=== PATIENT | female | born 1950 ===

== ENCOUNTER 2019-09-18 21:48 | Inpatient (IN) | payer MEDICARE, MEDICAID ==
[2019-09-19] MEDS ORDERED: Magnesium Hydroxide (MOM) 30 mL UDC PO PRN (01:06)
[2019-09-19] MEDS ORDERED: Maalox 30 mL Cup PO PRN (01:06)
--- NOTE | 2019-09-19 08:25 | Psychiatric Evaluation ---
DATE OF SERVICE: 09/19/2019 PSYCHIATRIC INITIAL EVALUATION AND MENTAL STATUS EXAM AGE: 68. SEX: Female. PHYSICIAN: Dr. Camargo. CHIEF COMPLAINT: "They told me ____ medication adjustment." HISTORY OF PRESENT ILLNESS: The patient is a 68-year-old female with history of schizoaffective disorder. The patient was placed on [address] Naqvi in [facility] where she resigns because of aggressive behavior and agitation and striking staff and threatening others. The patient has been extremely irritable and agitated. Chart reviewed and the patient interviewed and discussed the patient's condition with the staff and reviewed records and labs. The patient has history of what seems to be schizoaffective disorder of bipolar type. She has been argumentative and threatening staff and hitting staff in the [facility]. She also has difficulty following directions. The patient also on the hospital has been argumentative and has been paranoid and delusional thinking that she does not need to be in the hospital. PAST PSYCHIATRIC HISTORY: History of schizoaffective disorder, bipolar type. The patient is on Zyprexa 10 mg every morning and 10 mg at bedtime as well as BuSpar 10 mg twice a day. PAST MEDICAL HISTORY: The patient has hypertension. SOCIAL HISTORY: The patient is . She has one daughter that is involved with her treatment. She lives in [facility] for the last 2 years. She smokes 5 cigarettes per day. She denies alcohol or any other street drug use. She denies abuse issues and denies any legal issues. ALLERGIES: MACROBID CURRENT MEDICATIONS: As mentioned above, BuSpar and Zyprexa. MENTAL STATUS EXAMINATION: Anxious. Unkempt, but dressed appropriately. Fair eye contact. Normal tone and rate of speech. Thought processes are circumstantial and tangential, but no flight of ideas. The patient denies auditory or visual hallucinations, but seems to be suspicious and paranoid. She denies any thoughts of suicide or homicide. The patient is alert and oriented to time, place, person, and situation. Intact immediate, recent and remote memories. Poor insight and poor judgment. She does not think she belongs to the hospital. Also, she was striking out at staff [facility]. She seems to be of average intelligence based on her verbal ability. Fair attention and concentration. ASSESSMENT: PRIMARY DIAGNOSIS: Schizoaffective disorder, bipolar type, severe, with psychotic features. MEDICAL DIAGNOSIS: Hypertension. TREATMENT PLAN: We will monitor the patient's behavior and condition closely. We will increase Zyprexa to 5 mg twice a day and 10 mg at bedtime and we will continue adjusting medications. Also, we will try to get more information from the [facility] and also will try to communicate with her psychiatrist in the outpatient. ESTIMATED LENGTH OF STAY: 5-7 days. PATIENT'S STRENGTHS AND WEAKNESSES: The patient has supportive daughter and also her staff in [facility] are supportive to her. Weaknesses are her ineffective coping and poor impulse control and poor judgment. AFTER DISCHARGE PLANS: Outpatient treatment and followup will continue as an outpatient. CRITERIA FOR DISCHARGE: The patient will not be psychotic or suicidal or homicidal and will stabilize psychotropic medications and will establish outpatient treatment plans. JOB# [id number]
[2019-09-19] MEDS ORDERED: Non-Formulary Item 1 EA (Docusate Calcium [Docusate Calcium] 240 MG) PO SCH (09:00)
[2019-09-19] MEDS ORDERED: Non-Formulary Item 1 EA (Meloxicam [Meloxicam] 7.5 MG) PO SCH (09:00)
[2019-09-19] MEDS ORDERED: Non-Formulary Item 1 EA (Esomeprazole Magnesium [Esomeprazole Magnesium] 40 MG) PO SCH (09:00)
[2019-09-19] MEDS ORDERED: HALOBETASOL PROPIONATE TP SCH (09:00)
[2019-09-19] MEDS ORDERED: [UNRECOGNIZED DRUG - MIXTURE] TP SCH (09:00)
[2019-09-19] MEDS: Multivitamin Tab PO SCH (09:53)
[2019-09-19] MEDS: Potassium Chloride 10 mEq ER Tab PO SCH (09:53)
--- NOTE | 2019-09-19 20:36 | History & Physical ---
ADMIT DATE: HISTORY OF PRESENT ILLNESS: The patient is a 68-year-old female with long history of hypertension, seizure disorder, hyperlipidemia, degenerative joint disease, migraine headache, psychosis, admitted to [facility] under Dr. Camargo's service. The patient feels well. No chest pain. No shortness of breath. No nausea or vomiting. PAST MEDICAL HISTORY: Significant for hypertension, seizure disorder, migraine headache, hyperlipidemia, chronic back pain, degenerative joint disease and psychosis. PAST SURGICAL HISTORY: No recent surgery. ALLERGIES: MACROBID. SOCIAL HISTORY: Chronic smoker. No alcohol or drug. FAMILY HISTORY: Noncontributory. MEDICATIONS: Follow admission reconciliation. REVIEW OF SYSTEMS: RENAL SYSTEM: No history of chronic renal disorder. CARDIOVASCULAR SYSTEM: History of hypertension. ENDOCRINE SYSTEM: No diabetes or thyroid problem. GASTROINTESTINAL SYSTEM: No upper or lower GI bleeding. NEUROLOGICAL SYSTEM: She has history of seizure disorder. SKELETOMUSCULAR SYSTEM: She has degenerative joint disease. HEMATOLOGICAL SYSTEM: No bleeding tendencies. RESPIRATORY SYSTEM: Chronic smoker. GENITOURINARY: No dysuria or hematuria. PHYSICAL EXAMINATION: GENERAL: She is awake, alert, oriented. VITAL SIGNS: Temperature 97.8, heart rate 78, blood pressure 151/80. HEENT: Pupils reacting to light and accommodation. Sclerae clear. NECK: Supple. Negative for lymphadenopathy, JVD or bruit. CHEST: Air bilaterally normal. No rhonchi or wheezing. HEART: S1, S2 normal. No murmur or gallop rhythm. ABDOMEN: Soft, bowel sounds positive. EXTREMITIES: No edema. NEUROLOGIC: She is awake, alert and oriented. No focal muscle deficits. Cranial nerves 2-12 intact. ASSESSMENT: 1. Hypertension. 2. Seizure disorder. 3. Hyperlipidemia. 4. Migraine headache. 5. Degenerative joint disease. 6. Psychosis. PLAN: The patient in the hospital under Dr. Camargo's service. Medical problem addressed during hospitalization is psychosis. Problem addressed at discharge seizure disorder, hypertension, hyperlipidemia, degenerative joint disease. The patient is medically stable for activity. Thank you Dr. Camargo for asking me to see your patient. The patient is a full code. JOB# [id number]
[2019-09-19] MEDS: Atorvastatin Calcium 10 MG TAB PO SCH (20:46)
[2019-09-19] MEDS ORDERED: Atorvastatin Calcium 10 MG TAB PO SCH (21:00)
[2019-09-20] MEDS: Pantoprazole 40 mg EC Tab PO SCH (08:47)
[2019-09-20] MEDS: Multivitamin Tab PO SCH (08:47)
[2019-09-20] MEDS: Potassium Chloride 10 mEq ER Tab PO SCH (08:49)
--- NOTE | 2019-09-20 15:05 | Progress Notes ---
DATE: 09/20/2019 PSYCHIATRIC PROGRESS NOTE SUBJECTIVE: Chart was reviewed and the patient was interviewed. Also, discussed the patient's condition with the staff and reviewed records and labs. The patient is still suspicious and is still paranoid. The patient also is still easily agitated. She kept asking me about my business number and about the hospital number and also talking to me about Dr. Ocampo, her outside psychiatrist, and I informed her to give me his number so I can contact him, but she did not give it to me and she wants to talk to him herself. The patient also is still pacing up and down the unit in slightly confused state and suspicious and paranoid. On the other hand, patient is compliant with taking her medications with no side effects of medications. ASSESSMENT: The patient is still psychotic and is still agitated. TREATMENT PLAN: Zyprexa was increased yesterday to 5 mg twice a day and 10 mg at bedtime. We will continue same dose and we will continue to follow up her condition and her medications closely. [facility]# [id number]
--- NOTE | 2019-09-20 20:13 | Internal Medicine Prog Note ---
Internal Medicine Subjective - Subjective Service Date: 09/20/19 Patient seen and examined:: without staff Patient is:: awake, talking Per staff patient has:: no adverse event Internal Medicine Objective - Physical Exam Vitals and I&O: Vital Signs Temp 97.3 F 09/20/19 15:07 Pulse 79 09/20/19 16:35 Resp 20 09/20/19 15:07 BP 119/71 09/20/19 16:35 Pulse Ox 97 09/20/19 15:07 Intake & Output 09/20/19 09/20/19 09/21/19 06:59 18:59 06:59 Intake Total 240 Balance 240 Intake: Oral 240 Other: # Voids 1 Active Medications: Current Medications Acetaminophen (Tylenol) 650 mg PO Q4H PRN PRN Reason: Pain (Mild 1-3) Stop: 11/18/19 01:05 Acetaminophen (Tylenol) 650 mg PO Q4H PRN PRN Reason: Temperature above 101 Stop: 11/18/19 03:13 Al Hydrox/Mg Hydrox/Simethicone (Maalox) 30 ml PO Q4HR PRN PRN Reason: GI DISTRESS Stop: 11/18/19 01:05 Atorvastatin Calcium (Lipitor) 20 mg PO HS [facility]; Protocol Stop: 11/18/19 20:59 Last Admin: 09/19/19 20:46 Dose: 20 mg Baclofen (Lioresal) 10 mg PO TID [facility] Stop: 11/18/19 08:59 Last Admin: 09/20/19 13:06 Dose: 10 mg Benazepril HCl (Lotensin) 20 mg PO BID [facility] Stop: 11/18/19 08:59 Last Admin: 09/20/19 16:35 Dose: 20 mg Buspirone HCl (Buspar) 10 mg PO BID [facility]; Protocol Stop: 11/18/19 08:59 Last Admin: 09/20/19 16:36 Dose: 10 mg Diclofenac Sodium (Voltaren) 25 mg PO DAILY [facility] Stop: 11/19/19 08:59 Last Admin: 09/20/19 08:50 Dose: 25 mg Docusate Sodium (Colace) 250 mg PO DAILY [facility] Stop: 11/18/19 08:59 Last Admin: 09/20/19 08:47 Dose: 250 mg Fluoxetine HCl (Prozac) 20 mg PO DAILY [facility]; Protocol Stop: 11/18/19 08:59 Last Admin: 09/20/19 08:47 Dose: 20 mg Furosemide (Lasix) 20 mg PO DAILY [facility] Stop: 11/18/19 08:59 Last Admin: 09/20/19 08:49 Dose: 20 mg Galantamine Hydrobromide (Razadyne) 4 mg PO BID [facility] Stop: 11/18/19 08:59 Last Admin: 09/20/19 16:39 Dose: 4 mg Hydrochlorothiazide (Hctz) 25 mg PO DAILY [facility] Stop: 11/19/19 08:59 Last Admin: 09/20/19 08:48 Dose: 25 mg Levetiracetam (Keppra) 500 mg PO BID [facility] Stop: 11/18/19 08:59 Last Admin: 09/20/19 16:37 Dose: 500 mg Lorazepam (Ativan) 0.5 mg PO Q4HR PRN; Protocol PRN Reason: Anxiety Stop: 10/19/19 01:05 Magnesium Hydroxide (Milk Of Magnesia) 30 ml PO HS PRN PRN Reason: Constipation Miscellaneous (Ciclopirox/Skin Cleanser No.28 [Ciclodan 0.77% Cream Kit]) 0.77 gm TP BID [facility] Stop: 11/18/19 08:59 Miscellaneous (Halobetasol Propionate [Halobetasol Propionate]) 50 gm TP DAILY [facility] Stop: 11/18/19 08:59 Multivitamins/Vitamin C (Theragran) 1 tab PO DAILY [facility] Stop: 11/18/19 08:59 Last Admin: 09/20/19 08:47 Dose: 1 tab Olanzapine (Zyprexa) 10 mg PO HS [facility]; Protocol Stop: 11/18/19 20:59 Last Admin: 09/19/19 20:46 Dose: 10 mg Olanzapine (Zyprexa) 5 mg PO BID [facility]; Protocol Stop: 11/18/19 08:59 Last Admin: 09/20/19 16:36 Dose: 5 mg Pantoprazole Sodium (Protonix) 40 mg PO DAILY [facility] Stop: 11/19/19 08:59 Last Admin: 09/20/19 08:47 Dose: 40 mg Potassium Chloride (Klor-Con) 10 meq PO DAILY [facility] Stop: 11/18/19 08:59 Last Admin: 01/24/20 08:49 Dose: 10 meq Spironolactone (Aldactone) 25 mg PO DAILY [facility] Stop: 11/19/19 08:59 Last Admin: 09/20/19 08:48 Dose: 25 mg Sumatriptan Succinate (Imitrex) 50 mg PO DAILY PRN PRN Reason: headache Stop: 11/19/19 06:12 Zolpidem Tartrate (Ambien) 5 mg PO HS PRN PRN Reason: Insomnia Stop: 11/18/19 02:13 General: demented HEENT: NC/AT, PERRLA, EOMI, anicteric sclerae, throat clear Neck: Supple, No JVD, No thyromegaly, +2 carotid pulse wo bruit, No LAD, + JVD Lungs: CTAB Cardiovascular: RRR, Normal S1, Normal S2, without murmur Abdomen: non-tender, non-distended Extremities: clear Neurological: no change Internal Medicine Assmt/Plan - Assessment Assessment: 1.HTN. 2.COPD. 3.SEIZURE DISORDER. 4.PSYCHOSIS - Plan Plan: CONTINUE ON CURRENT MEDICATION AND DIET
[2019-09-20] MEDS: Atorvastatin Calcium 10 MG TAB PO SCH (21:05)
[2019-09-21] MEDS: Multivitamin Tab PO SCH (08:28)
[2019-09-21] MEDS: Pantoprazole 40 mg EC Tab PO SCH (08:29)
[2019-09-21] MEDS: Potassium Chloride 10 mEq ER Tab PO SCH (08:29)
--- NOTE | 2019-09-21 18:31 | Internal Medicine Prog Note ---
Internal Medicine Subjective - Subjective Service Date: 09/21/19 Patient seen and examined:: without staff (SHE FEELS WELL) Patient is:: awake, talking Per staff patient has:: no adverse event Internal Medicine Objective - Physical Exam Vitals and I&O: Vital Signs Temp 98.2 F 09/21/19 13:54 Pulse 97 09/21/19 16:47 Resp 20 09/21/19 13:54 BP 121/57 09/21/19 16:47 Pulse Ox 96 09/21/19 13:54 Intake & Output 09/20/19 09/21/19 09/21/19 18:59 06:59 18:59 Intake Total 120 Balance 120 Intake: Oral 120 Other: # Voids 2 2 # Bowel Movements 0 1 Active Medications: Current Medications Acetaminophen (Tylenol) 650 mg PO Q4H PRN PRN Reason: Pain (Mild 1-3) Stop: 11/18/19 01:05 Acetaminophen (Tylenol) 650 mg PO Q4H PRN PRN Reason: Temperature above 101 Stop: 11/18/19 03:13 Al Hydrox/Mg Hydrox/Simethicone (Maalox) 30 ml PO Q4HR PRN PRN Reason: GI DISTRESS Stop: 11/18/19 01:05 Atorvastatin Calcium (Lipitor) 20 mg PO HS [facility]; Protocol Stop: 11/18/19 20:59 Last Admin: 09/20/19 21:05 Dose: 20 mg Baclofen (Lioresal) 10 mg PO TID [facility] Stop: 11/18/19 08:59 Last Admin: 09/21/19 13:43 Dose: 10 mg Benazepril HCl (Lotensin) 20 mg PO BID [facility] Stop: 11/18/19 08:59 Last Admin: 09/21/19 16:47 Dose: 20 mg Buspirone HCl (Buspar) 10 mg PO BID [facility]; Protocol Stop: 11/18/19 08:59 Last Admin: 09/21/19 16:47 Dose: 10 mg Diclofenac Sodium (Voltaren) 25 mg PO DAILY [facility] Stop: 11/19/19 08:59 Last Admin: 09/21/19 08:29 Dose: 25 mg Docusate Sodium (Colace) 250 mg PO DAILY [facility] Stop: 11/18/19 08:59 Last Admin: 09/21/19 08:29 Dose: 250 mg Fluoxetine HCl (Prozac) 20 mg PO DAILY [facility]; Protocol Stop: 11/18/19 08:59 Last Admin: 09/21/19 08:28 Dose: 20 mg Furosemide (Lasix) 20 mg PO DAILY [facility] Stop: 11/18/19 08:59 Last Admin: 09/21/19 08:31 Dose: 20 mg Galantamine Hydrobromide (Razadyne) 4 mg PO BID [facility] Stop: 11/18/19 08:59 Last Admin: 09/21/19 16:50 Dose: 4 mg Hydrochlorothiazide (Hctz) 25 mg PO DAILY [facility] Stop: 11/19/19 08:59 Last Admin: 09/21/19 08:31 Dose: 25 mg Levetiracetam (Keppra) 500 mg PO BID [facility] Stop: 11/18/19 08:59 Last Admin: 09/21/19 16:47 Dose: 500 mg Lorazepam (Ativan) 0.5 mg PO Q4HR PRN; Protocol PRN Reason: Anxiety Stop: 10/19/19 01:05 Magnesium Hydroxide (Milk Of Magnesia) 30 ml PO HS PRN PRN Reason: Constipation Multivitamins/Vitamin C (Theragran) 1 tab PO DAILY [facility] Stop: 11/18/19 08:59 Last Admin: 09/21/19 08:28 Dose: 1 tab Olanzapine (Zyprexa) 10 mg PO HS [facility]; Protocol Stop: 11/18/19 20:59 Last Admin: 09/20/19 21:05 Dose: 10 mg Olanzapine (Zyprexa) 5 mg PO BID [facility]; Protocol Stop: 11/18/19 08:59 Last Admin: 09/21/19 16:47 Dose: 5 mg Pantoprazole Sodium (Protonix) 40 mg PO DAILY [facility] Stop: 11/19/19 08:59 Last Admin: 09/21/19 08:29 Dose: 40 mg Potassium Chloride (Klor-Con) 10 meq PO DAILY [facility] Stop: 11/18/19 08:59 Last Admin: 09/21/19 08:29 Dose: 10 meq Spironolactone (Aldactone) 25 mg PO DAILY [facility] Stop: 11/19/19 08:59 Last Admin: 09/21/19 08:29 Dose: 25 mg Sumatriptan Succinate (Imitrex) 50 mg PO DAILY PRN PRN Reason: headache Stop: 11/19/19 06:12 Zolpidem Tartrate (Ambien) 5 mg PO HS PRN PRN Reason: Insomnia Stop: 11/18/19 02:13 General: demented HEENT: NC/AT, PERRLA, EOMI, anicteric sclerae, throat clear Neck: Supple, No JVD, No thyromegaly, +2 carotid pulse wo bruit, No LAD, + JVD Lungs: CTAB Cardiovascular: RRR, Normal S1, Normal S2, without murmur Abdomen: non-tender, non-distended Extremities: clear Neurological: no change Internal Medicine Assmt/Plan - Assessment Assessment: 1.HTN. 2.COPD. 3.SEIZURE DISORDER. 4.PSYCHOSIS - Plan Plan: CONTINUE ON CURRENT MEDICATION AND DIET
--- NOTE | 2019-09-21 19:23 | Progress Notes ---
DATE: SUBJECTIVE: Chart reviewed and the patient interviewed. Also discussed the patient's condition with the staff and reviewed records and labs. Please call "Dr. Ocampo and I want Dr. Ocampo to get me out of here." The patient still has poor insight and poor judgment and she is still in irritable and angry mood. The patient also is suspicious and is paranoid. She also is argumentative and she is still withdrawn. On the other hand, the patient is compliant with taking her medications with no side effects of medications. ASSESSMENT: The patient is still agitated and psychotic and needs close monitoring. TREATMENT PLAN: Continue to monitor her behavior and her condition closely. Also, continue working on adjusting her psychotropic medications. Also, we will continue Zyprexa 5 mg twice a day and 10 mg at bedtime and we will continue to follow up. JOB# [id number]
[2019-09-21] MEDS: Atorvastatin Calcium 10 MG TAB PO SCH (21:27)
[2019-09-22] MEDS: Potassium Chloride 10 mEq ER Tab PO SCH (08:19)
[2019-09-22] MEDS: Pantoprazole 40 mg EC Tab PO SCH (08:20)
[2019-09-22] MEDS: Multivitamin Tab PO SCH (08:20)
[2019-09-22] MEDS: Atorvastatin Calcium 10 MG TAB PO SCH (21:37)
--- NOTE | 2019-09-22 22:06 | Internal Medicine Prog Note ---
Internal Medicine Subjective - Subjective Service Date: 09/22/19 Patient seen and examined:: without staff (SHE FEELS BETTER) Patient is:: awake, talking Per staff patient has:: no adverse event Internal Medicine Objective - Physical Exam Vitals and I&O: Vital Signs Temp 97.2 F 09/22/19 20:39 Pulse 57 09/22/19 20:39 Resp 18 09/22/19 20:39 BP 94/53 09/22/19 20:39 Pulse Ox 93 09/22/19 20:39 Intake & Output 09/22/19 09/22/19 09/23/19 06:59 18:59 06:59 Intake Total 240 240 Balance 240 240 Intake: Oral 240 240 Other: # Voids 1 2 2 # Bowel Movements 0 Active Medications: Current Medications Acetaminophen (Tylenol) 650 mg PO Q4H PRN PRN Reason: Pain (Mild 1-3) Stop: 11/18/19 01:05 Acetaminophen (Tylenol) 650 mg PO Q4H PRN PRN Reason: Temperature above 101 Stop: 11/18/19 03:13 Al Hydrox/Mg Hydrox/Simethicone (Maalox) 30 ml PO Q4HR PRN PRN Reason: GI DISTRESS Stop: 11/18/19 01:05 Atorvastatin Calcium (Lipitor) 20 mg PO HS [facility]; Protocol Stop: 11/18/19 20:59 Last Admin: 09/22/19 21:37 Dose: 20 mg Baclofen (Lioresal) 10 mg PO TID [facility] Stop: 11/18/19 08:59 Last Admin: 09/22/19 21:38 Dose: 10 mg Benazepril HCl (Lotensin) 20 mg PO BID [facility] Stop: 11/18/19 08:59 Last Admin: 09/22/19 17:40 Dose: 20 mg Buspirone HCl (Buspar) 10 mg PO TID [facility]; Protocol Stop: 11/21/19 08:59 Last Admin: 09/22/19 21:38 Dose: 10 mg Diclofenac Sodium (Voltaren) 25 mg PO DAILY [facility] Stop: 11/19/19 08:59 Last Admin: 09/22/19 08:21 Dose: 25 mg Docusate Sodium (Colace) 250 mg PO DAILY [facility] Stop: 11/18/19 08:59 Last Admin: 09/22/19 08:21 Dose: 250 mg Fluoxetine HCl (Prozac) 20 mg PO DAILY [facility]; Protocol Stop: 11/18/19 08:59 Last Admin: 09/22/19 08:19 Dose: 20 mg Furosemide (Lasix) 20 mg PO DAILY [facility] Stop: 11/18/19 08:59 Last Admin: 09/22/19 08:21 Dose: 20 mg Galantamine Hydrobromide (Razadyne) 4 mg PO BID [facility] Stop: 11/18/19 08:59 Last Admin: 09/22/19 17:40 Dose: 4 mg Hydrochlorothiazide (Hctz) 25 mg PO DAILY [facility] Stop: 11/19/19 08:59 Last Admin: 09/22/19 08:22 Dose: 25 mg Levetiracetam (Keppra) 500 mg PO BID [facility] Stop: 11/18/19 08:59 Last Admin: 09/22/19 17:39 Dose: 500 mg Lorazepam (Ativan) 0.5 mg PO Q4HR PRN; Protocol PRN Reason: Anxiety Stop: 10/19/19 01:05 Magnesium Hydroxide (Milk Of Magnesia) 30 ml PO HS PRN PRN Reason: Constipation Multivitamins/Vitamin C (Theragran) 1 tab PO DAILY [facility] Stop: 11/18/19 08:59 Last Admin: 09/22/19 08:20 Dose: 1 tab Olanzapine (Zyprexa) 10 mg PO HS [facility]; Protocol Stop: 11/18/19 20:59 Last Admin: 09/22/19 21:38 Dose: 10 mg Olanzapine (Zyprexa) 5 mg PO BID [facility]; Protocol Stop: 11/18/19 08:59 Last Admin: 09/22/19 17:40 Dose: 5 mg Pantoprazole Sodium (Protonix) 40 mg PO DAILY [facility] Stop: 11/19/19 08:59 Last Admin: 09/22/19 08:20 Dose: 40 mg Potassium Chloride (Klor-Con) 10 meq PO DAILY [facility] Stop: 11/18/19 08:59 Last Admin: 09/22/19 08:19 Dose: 10 meq Spironolactone (Aldactone) 25 mg PO DAILY [facility] Stop: 11/19/19 08:59 Last Admin: 09/22/19 08:20 Dose: 25 mg Sumatriptan Succinate (Imitrex) 50 mg PO DAILY PRN PRN Reason: headache Stop: 11/19/19 06:12 Zolpidem Tartrate (Ambien) 5 mg PO HS PRN PRN Reason: Insomnia Stop: 11/18/19 02:13 General: demented HEENT: NC/AT, PERRLA, EOMI, anicteric sclerae, throat clear Neck: Supple, No JVD, No thyromegaly, +2 carotid pulse wo bruit, No LAD, + JVD Lungs: CTAB Cardiovascular: RRR, Normal S1, Normal S2, without murmur Abdomen: non-tender, non-distended Extremities: clear Neurological: no change Internal Medicine Assmt/Plan - Assessment Assessment: 1.HTN. 2.COPD. 3.SEIZURE DISORDER. 4.PSYCHOSIS - Plan Plan: CONTINUE ON CURRENT MEDICATION AND DIET
--- NOTE | 2019-09-22 22:26 | Progress Notes ---
DATE: 09/22/2019 SUBJECTIVE: Chart reviewed and the patient interviewed. Also discussed the patient's condition with the staff, and reviewed records and labs. The patient is still anxious and is still in irritable mood. The patient also is still having difficulty sleeping at night. She also is still suspicious and paranoid and argumentative. She is preoccupied with getting out of the hospital and with me talking to "Dr. Ocampo." Otherwise, the patient is anxious, and is in irritable mood and argumentative. Also, she is compliant with taking her medications with no side effects of medications. ASSESSMENT: The patient is still paranoid and is still psychotic. TREATMENT PLAN: Continue Zyprexa at same dose, but we will increase BuSpar to 10 mg 3 times a day. Also, continue monitoring behavior and follow up closely. JOB# [id number]
[2019-09-23] MEDS: Potassium Chloride 10 mEq ER Tab PO SCH (08:20)
[2019-09-23] MEDS: Multivitamin Tab PO SCH (08:21)
[2019-09-23] MEDS: Pantoprazole 40 mg EC Tab PO SCH (08:21)
--- NOTE | 2019-09-23 20:21 | Internal Medicine Prog Note ---
Internal Medicine Subjective - Subjective Service Date: 09/23/19 Patient is:: awake, in bed, talking Per staff patient has:: no adverse event Internal Medicine Objective - Physical Exam Vitals and I&O: Vital Signs Temp 97.6 F 09/23/19 14:00 Pulse 72 09/23/19 17:20 Resp 20 09/23/19 14:00 BP 119/66 09/23/19 17:20 Pulse Ox 96 09/23/19 14:00 Intake & Output 09/23/19 09/23/19 09/24/19 06:59 18:59 06:59 Intake Total 400 Balance 400 Intake: Oral 400 Other: # Voids 1 # Bowel Movements 0 Active Medications: Current Medications Acetaminophen (Tylenol) 650 mg PO Q4H PRN PRN Reason: Pain (Mild 1-3) Stop: 11/18/19 01:05 Acetaminophen (Tylenol) 650 mg PO Q4H PRN PRN Reason: Temperature above 101 Stop: 11/18/19 03:13 Al Hydrox/Mg Hydrox/Simethicone (Maalox) 30 ml PO Q4HR PRN PRN Reason: GI DISTRESS Stop: 11/18/19 01:05 Atorvastatin Calcium (Lipitor) 20 mg PO HS [facility]; Protocol Stop: 11/18/19 20:59 Last Admin: 09/22/19 21:37 Dose: 20 mg Baclofen (Lioresal) 10 mg PO TID [facility] Stop: 11/18/19 08:59 Last Admin: 09/23/19 13:02 Dose: 10 mg Benazepril HCl (Lotensin) 20 mg PO BID [facility] Stop: 11/18/19 08:59 Last Admin: 09/23/19 17:20 Dose: 20 mg Buspirone HCl (Buspar) 10 mg PO TID [facility]; Protocol Stop: 11/21/19 08:59 Last Admin: 09/23/19 13:02 Dose: 10 mg Diclofenac Sodium (Voltaren) 25 mg PO DAILY [facility] Stop: 11/19/19 08:59 Last Admin: 09/23/19 08:19 Dose: 25 mg Docusate Sodium (Colace) 250 mg PO DAILY [facility] Stop: 11/18/19 08:59 Last Admin: 09/23/19 08:19 Dose: 250 mg Fluoxetine HCl (Prozac) 20 mg PO DAILY [facility]; Protocol Stop: 11/18/19 08:59 Last Admin: 09/23/19 08:20 Dose: 20 mg Furosemide (Lasix) 20 mg PO DAILY [facility] Stop: 11/18/19 08:59 Last Admin: 09/23/19 08:20 Dose: 20 mg Galantamine Hydrobromide (Razadyne) 4 mg PO BID [facility] Stop: 11/18/19 08:59 Last Admin: 09/23/19 17:20 Dose: 4 mg Hydrochlorothiazide (Hctz) 25 mg PO DAILY [facility] Stop: 11/19/19 08:59 Last Admin: 09/23/19 08:21 Dose: 25 mg Levetiracetam (Keppra) 500 mg PO BID [facility] Stop: 11/18/19 08:59 Last Admin: 09/23/19 17:20 Dose: 500 mg Lorazepam (Ativan) 0.5 mg PO Q4HR PRN; Protocol PRN Reason: Anxiety Stop: 10/19/19 01:05 Magnesium Hydroxide (Milk Of Magnesia) 30 ml PO HS PRN PRN Reason: Constipation Multivitamins/Vitamin C (Theragran) 1 tab PO DAILY [facility] Stop: 11/18/19 08:59 Last Admin: 09/23/19 08:21 Dose: 1 tab Olanzapine (Zyprexa) 10 mg PO HS [facility]; Protocol Stop: 11/18/19 20:59 Last Admin: 09/22/19 21:38 Dose: 10 mg Olanzapine (Zyprexa) 5 mg PO BID [facility]; Protocol Stop: 11/18/19 08:59 Last Admin: 09/23/19 17:20 Dose: 5 mg Pantoprazole Sodium (Protonix) 40 mg PO DAILY [facility] Stop: 11/19/19 08:59 Last Admin: 09/23/19 08:21 Dose: 40 mg Potassium Chloride (Klor-Con) 10 meq PO DAILY [facility] Stop: 11/18/19 08:59 Last Admin: 09/23/19 08:20 Dose: 10 meq Quetiapine Fumarate (Seroquel) 25 mg PO BID [facility]; Protocol Stop: 11/22/19 10:59 Last Admin: 09/23/19 17:20 Dose: 25 mg Spironolactone (Aldactone) 25 mg PO DAILY [facility] Stop: 11/19/19 08:59 Last Admin: 09/23/19 08:20 Dose: 25 mg Sumatriptan Succinate (Imitrex) 50 mg PO DAILY PRN PRN Reason: headache Stop: 11/19/19 06:12 Zolpidem Tartrate (Ambien) 5 mg PO HS PRN PRN Reason: Insomnia Stop: 11/18/19 02:13 General: demented HEENT: NC/AT, PERRLA, EOMI, anicteric sclerae, throat clear Neck: Supple, No JVD, No thyromegaly, +2 carotid pulse wo bruit, No LAD, + JVD Lungs: CTAB Cardiovascular: RRR, Normal S1, Normal S2, without murmur Abdomen: non-tender, non-distended Extremities: clear Neurological: no change Internal Medicine Assmt/Plan - Assessment Assessment: 1.HTN. 2.COPD. 3.SEIZURE DISORDER. 4.PSYCHOSIS - Plan Plan: CONTINUE ON CURRENT MEDICATION AND DIET
[2019-09-23] MEDS: Atorvastatin Calcium 10 MG TAB PO SCH (21:21)
--- NOTE | 2019-09-24 01:36 | Progress Notes ---
DATE: SUBJECTIVE: Chart was reviewed and the patient interviewed. Also discussed the patient's condition with the staff and I reviewed records and labs. The patient is still confused and is still argumentative and easily agitated. The patient is repeating the questions over and over and has difficulty following directions. The patient also is still restless and is still in an irritable mood. On the other hand, the patient is compliant with taking medications with no side effects of medications. ASSESSMENT: The patient is still paranoid and confused and agitated. TREATMENT PLAN: Continue monitoring her behavior closely. Also, it seems that the Zyprexa is not helping the patient much. We will add Seroquel 25 mg twice a day and also we will cross-titrate Seroquel and Zyprexa and we will continue to follow up closely. JOB# [id number]
[2019-09-24] MEDS: Multivitamin Tab PO SCH (08:55)
[2019-09-24] MEDS: Potassium Chloride 10 mEq ER Tab PO SCH (08:55)
[2019-09-24] MEDS: Pantoprazole 40 mg EC Tab PO SCH (08:57)
--- NOTE | 2019-09-24 10:25 | Internal Medicine Prog Note ---
Internal Medicine Subjective - Subjective Service Date: 09/24/19 Patient seen and examined:: without staff (SHE IS DOING WELL) Patient is:: awake, in bed, talking Per staff patient has:: no adverse event Internal Medicine Objective - Physical Exam Vitals and I&O: Vital Signs Temp 96.9 F 09/24/19 07:14 Pulse 71 09/24/19 08:56 Resp 18 09/24/19 08:00 BP 133/71 09/24/19 08:56 Pulse Ox 99 09/24/19 07:14 Intake & Output 09/23/19 09/24/19 09/24/19 18:59 06:59 18:59 Intake Total 240 Output Total 1 Balance 239 Intake: Oral 240 Output: Urine/Stool Mix 1 Other: # Voids 1 Active Medications: Current Medications Acetaminophen (Tylenol) 650 mg PO Q4H PRN PRN Reason: Pain (Mild 1-3) Stop: 11/18/19 01:05 Acetaminophen (Tylenol) 650 mg PO Q4H PRN PRN Reason: Temperature above 101 Stop: 11/18/19 03:13 Al Hydrox/Mg Hydrox/Simethicone (Maalox) 30 ml PO Q4HR PRN PRN Reason: GI DISTRESS Stop: 11/18/19 01:05 Atorvastatin Calcium (Lipitor) 20 mg PO HS [facility]; Protocol Stop: 11/18/19 20:59 Last Admin: 09/23/19 21:21 Dose: 20 mg Baclofen (Lioresal) 10 mg PO TID [facility] Stop: 11/18/19 08:59 Last Admin: 09/24/19 08:56 Dose: 10 mg Benazepril HCl (Lotensin) 20 mg PO BID [facility] Stop: 11/18/19 08:59 Last Admin: 09/24/19 08:56 Dose: 20 mg Buspirone HCl (Buspar) 10 mg PO TID [facility]; Protocol Stop: 11/21/19 08:59 Last Admin: 09/24/19 09:10 Dose: 10 mg Diclofenac Sodium (Voltaren) 25 mg PO DAILY [facility] Stop: 11/19/19 08:59 Last Admin: 09/24/19 08:55 Dose: 25 mg Docusate Sodium (Colace) 250 mg PO DAILY [facility] Stop: 11/18/19 08:59 Last Admin: 09/24/19 08:55 Dose: 250 mg Fluoxetine HCl (Prozac) 10 mg PO DAILY [facility]; Protocol Stop: 11/23/19 08:59 Last Admin: 09/24/19 09:11 Dose: 10 mg Furosemide (Lasix) 20 mg PO DAILY [facility] Stop: 11/18/19 08:59 Last Admin: 09/24/19 08:56 Dose: 20 mg Galantamine Hydrobromide (Razadyne) 4 mg PO BID [facility] Stop: 11/18/19 08:59 Last Admin: 09/24/19 08:55 Dose: 4 mg Hydrochlorothiazide (Hctz) 25 mg PO DAILY [facility] Stop: 11/19/19 08:59 Last Admin: 09/24/19 08:55 Dose: 25 mg Levetiracetam (Keppra) 500 mg PO BID [facility] Stop: 11/18/19 08:59 Last Admin: 09/24/19 08:55 Dose: 500 mg Lorazepam (Ativan) 0.5 mg PO Q4HR PRN; Protocol PRN Reason: Anxiety Stop: 10/19/19 01:05 Magnesium Hydroxide (Milk Of Magnesia) 30 ml PO HS PRN PRN Reason: Constipation Multivitamins/Vitamin C (Theragran) 1 tab PO DAILY [facility] Stop: 11/18/19 08:59 Last Admin: 09/24/19 08:55 Dose: 1 tab Olanzapine (Zyprexa) 10 mg PO HS [facility]; Protocol Stop: 11/18/19 20:59 Last Admin: 09/23/19 21:21 Dose: 10 mg Olanzapine (Zyprexa) 2.5 mg PO BID [facility]; Protocol Stop: 11/23/19 08:59 Last Admin: 09/24/19 08:57 Dose: 2.5 mg Pantoprazole Sodium (Protonix) 40 mg PO DAILY [facility] Stop: 11/19/19 08:59 Last Admin: 09/24/19 08:57 Dose: 40 mg Potassium Chloride (Klor-Con) 10 meq PO DAILY [facility] Stop: 11/18/19 08:59 Last Admin: 09/24/19 08:55 Dose: 10 meq Quetiapine Fumarate (Seroquel) 50 mg PO BID [facility]; Protocol Stop: 11/23/19 08:59 Last Admin: 09/24/19 08:56 Dose: 50 mg Spironolactone (Aldactone) 25 mg PO DAILY [facility] Stop: 11/19/19 08:59 Last Admin: 09/24/19 08:56 Dose: 25 mg Sumatriptan Succinate (Imitrex) 50 mg PO DAILY PRN PRN Reason: headache Stop: 11/19/19 06:12 Zolpidem Tartrate (Ambien) 5 mg PO HS PRN PRN Reason: Insomnia Stop: 11/18/19 02:13 General: demented HEENT: NC/AT, PERRLA, EOMI, anicteric sclerae, throat clear Neck: Supple, No JVD, No thyromegaly, +2 carotid pulse wo bruit, No LAD, + JVD Lungs: CTAB Cardiovascular: RRR, Normal S1, Normal S2, without murmur Abdomen: non-tender, non-distended Extremities: clear Neurological: no change Internal Medicine Assmt/Plan - Assessment Assessment: 1.HTN. 2.COPD. 3.SEIZURE DISORDER. 4.PSYCHOSIS - Plan Plan: CONTINUE ON CURRENT MEDICATION AND DIET
[2019-09-24] MEDS: Atorvastatin Calcium 10 MG TAB PO SCH (20:22)
--- NOTE | 2019-09-24 22:07 | Progress Notes ---
DATE: SUBJECTIVE: Chart was reviewed and the patient interviewed. Also discussed the patient's condition with the staff and reviewed records and labs. The patient is still in irritable and angry mood. The patient also is still argumentative and she is still easily irritable. The patient also is still suspicious and paranoid. On the other hand, slightly easier to redirect her. She is still at times had episodes of being manic and pressured speech. Otherwise, patient is slightly easier to redirect her. I spoke with patient's psychiatric nurse practitioners who has been taking care of the patient and discussed with her treatment plans. Actually this is the nurse practitioner of her primary care physician, Dr. Ocampo. I discussed with her treatment plan and she agreed with the treatment plan. ASSESSMENT: The patient is still in irritable mood and needs monitoring. TREATMENT PLAN: We will decrease Prozac to 10 mg every day and we will decrease Zyprexa to 2.5 mg twice a day and 10 mg at bedtime. At the same time, we will increase Seroquel to 50 mg twice a day and we will continue to cross titrating Zyprexa with Risperdal. Also, continue to work on behavior modification and her irritability. JOB# [id number]
[2019-09-25] MEDS: Potassium Chloride 10 mEq ER Tab PO SCH (08:26)
[2019-09-25] MEDS: Pantoprazole 40 mg EC Tab PO SCH (08:26)
[2019-09-25] MEDS: Multivitamin Tab PO SCH (08:27)
--- NOTE | 2019-09-25 11:37 | Internal Medicine Prog Note ---
Internal Medicine Subjective - Subjective Service Date: 09/25/19 Patient seen and examined:: without staff (SHE FEELS BETTER) Patient is:: awake, in bed, talking Per staff patient has:: no adverse event Internal Medicine Objective - Physical Exam Vitals and I&O: Vital Signs Temp 97.8 F 09/25/19 06:41 Pulse 76 09/25/19 08:26 Resp 20 09/25/19 06:41 BP 122/68 09/25/19 08:27 Pulse Ox 96 09/25/19 06:41 Intake & Output 09/24/19 09/25/19 09/25/19 18:59 06:59 18:59 Intake Total 800 360 Balance 800 360 Intake: Oral 800 360 Other: # Voids 4 2 # Bowel Movements 0 0 Active Medications: Current Medications Acetaminophen (Tylenol) 650 mg PO Q4H PRN PRN Reason: Pain (Mild 1-3) Stop: 11/18/19 01:05 Acetaminophen (Tylenol) 650 mg PO Q4H PRN PRN Reason: Temperature above 101 Stop: 11/18/19 03:13 Al Hydrox/Mg Hydrox/Simethicone (Maalox) 30 ml PO Q4HR PRN PRN Reason: GI DISTRESS Stop: 11/18/19 01:05 Atorvastatin Calcium (Lipitor) 20 mg PO HS [facility]; Protocol Stop: 11/18/19 20:59 Last Admin: 09/24/19 20:22 Dose: 20 mg Baclofen (Lioresal) 10 mg PO TID [facility] Stop: 11/18/19 08:59 Last Admin: 09/25/19 08:26 Dose: 10 mg Benazepril HCl (Lotensin) 20 mg PO BID [facility] Stop: 11/18/19 08:59 Last Admin: 09/25/19 08:26 Dose: 20 mg Buspirone HCl (Buspar) 10 mg PO TID [facility]; Protocol Stop: 11/21/19 08:59 Last Admin: 09/25/19 08:25 Dose: 10 mg Diclofenac Sodium (Voltaren) 25 mg PO DAILY [facility] Stop: 11/19/19 08:59 Last Admin: 09/25/19 08:25 Dose: 25 mg Docusate Sodium (Colace) 250 mg PO DAILY [facility] Stop: 11/18/19 08:59 Last Admin: 09/25/19 08:25 Dose: 250 mg Fluoxetine HCl (Prozac) 10 mg PO DAILY [facility]; Protocol Stop: 11/23/19 08:59 Last Admin: 09/25/19 08:25 Dose: 10 mg Furosemide (Lasix) 20 mg PO DAILY [facility] Stop: 11/18/19 08:59 Last Admin: 09/25/19 08:26 Dose: 20 mg Galantamine Hydrobromide (Razadyne) 4 mg PO BID [facility] Stop: 11/18/19 08:59 Last Admin: 09/25/19 08:25 Dose: 4 mg Hydrochlorothiazide (Hctz) 25 mg PO DAILY [facility] Stop: 11/19/19 08:59 Last Admin: 09/25/19 08:27 Dose: 25 mg Levetiracetam (Keppra) 500 mg PO BID [facility] Stop: 11/18/19 08:59 Last Admin: 09/25/19 08:27 Dose: 500 mg Lorazepam (Ativan) 0.5 mg PO Q4HR PRN; Protocol PRN Reason: Anxiety Stop: 10/19/19 01:05 Magnesium Hydroxide (Milk Of Magnesia) 30 ml PO HS PRN PRN Reason: Constipation Multivitamins/Vitamin C (Theragran) 1 tab PO DAILY [facility] Stop: 11/18/19 08:59 Last Admin: 09/25/19 08:27 Dose: 1 tab Olanzapine (Zyprexa) 5 mg PO HS [facility]; Protocol Stop: 11/24/19 20:59 Pantoprazole Sodium (Protonix) 40 mg PO DAILY [facility] Stop: 11/19/19 08:59 Last Admin: 09/25/19 08:26 Dose: 40 mg Potassium Chloride (Klor-Con) 10 meq PO DAILY [facility] Stop: 11/18/19 08:59 Last Admin: 09/25/19 08:26 Dose: 10 meq Quetiapine Fumarate (Seroquel) 100 mg PO BID [facility]; Protocol Stop: 11/24/19 08:59 Spironolactone (Aldactone) 25 mg PO DAILY [facility] Stop: 11/19/19 08:59 Last Admin: 09/25/19 08:26 Dose: 25 mg Sumatriptan Succinate (Imitrex) 50 mg PO DAILY PRN PRN Reason: headache Stop: 11/19/19 06:12 Zolpidem Tartrate (Ambien) 5 mg PO HS PRN PRN Reason: Insomnia Stop: 11/18/19 02:13 General: demented HEENT: NC/AT, PERRLA, EOMI, anicteric sclerae, throat clear Neck: Supple, No JVD, No thyromegaly, +2 carotid pulse wo bruit, No LAD, + JVD Lungs: CTAB Cardiovascular: RRR, Normal S1, Normal S2, without murmur Abdomen: non-tender, non-distended Extremities: clear Neurological: no change Internal Medicine Assmt/Plan - Assessment Assessment: 1.HTN. 2.COPD. 3.SEIZURE DISORDER. 4.PSYCHOSIS - Plan Plan: CONTINUE ON CURRENT MEDICATION AND DIET
[2019-09-25] MEDS: Atorvastatin Calcium 10 MG TAB PO SCH (21:05)
[2019-09-26] MEDS: Potassium Chloride 10 mEq ER Tab PO SCH (08:21)
[2019-09-26] MEDS: Multivitamin Tab PO SCH (08:22)
[2019-09-26] MEDS: Pantoprazole 40 mg EC Tab PO SCH (08:22)
--- NOTE | 2019-09-26 10:13 | Progress Notes ---
DATE: SUBJECTIVE: Chart was reviewed and the patient interviewed. Also, discussed the patient's condition with the staff and reviewed records and labs. The patient is still restless and anxious and in irritable mood. The patient also is still suspicious and paranoid. She also is still intrusive and keeps asking questions over and over nonstop and not able to follow directions easily. Otherwise, the patient continued to comply with taking her medications with no side effects of Zyprexa and Risperdal. ASSESSMENT: The patient is still agitated and needs close monitoring. TREATMENT PLAN: I discussed with the [facility] administrator of [facility] the chances of the patient going back there and she is going to send to somebody for evaluating her current condition and see if she is going to be appropriate to return there and she is not going to be bothering others as she was doing before. At the same time, we will discontinue Zyprexa and we will increase Seroquel to 125 mg twice a day and continue adjusting psychotropic medications and work on behavioral modification and followup. JOB# [id number]
--- NOTE | 2019-09-26 10:13 | Diagnostic Imaging Report ---
CHEST X-RAY: AP view INDICATION: pain, rule out TB COMPARISON: None FINDINGS: Exam is limited due to patient positioning and body habitus. There is no focal consolidation or pleural effusions. Cardiomegaly is noted. Scoliosis is noted with degenerative change of the spine and advanced degenerative changes of the bilateral hip joints. IMPRESSION: Limited exam due to positioning and body habitus. No focal consolidation or gross radiographic evidence of active tuberculosis. Clinical correlation is needed. Cardiomegaly.
--- NOTE | 2019-09-26 10:13 | Progress Notes ---
DATE: SUBJECTIVE: Chart was reviewed and the patient interviewed. Also discussed the patient's condition with the staff and reviewed records and labs. The patient is still argumentative and is still repeating questions over and over, but no major behavioral problems and slightly easier to redirect her. The patient also still has difficulty with her mood and difficulty following directions, but again it seems that not as bad as before and easier to do so. She is still compliant with taking her medications, but still asking to go to [facility] and asking about her discharge date and it is easier to let her know this time about discharge date, especially that myself and her nurse practitioner did talk to her yesterday together at the same time. ASSESSMENT: The patient is still paranoid and obsessed with discharge. TREATMENT PLAN: We will continue monitoring her behavior closely. Also, it seems that Seroquel has been helping the patient's more than Zyprexa. We will increase Seroquel to 100 mg twice a day and we will decrease Zyprexa to only 5 mg at bedtime and continue to monitor behavior and condition closely. JOB# [id number]
--- NOTE | 2019-09-26 19:33 | Internal Medicine Prog Note ---
Internal Medicine Subjective - Subjective Service Date: 09/26/19 Patient seen and examined:: without staff (SHE IS DOING WELL) Patient is:: awake, in bed, talking Per staff patient has:: no adverse event Internal Medicine Objective - Physical Exam Vitals and I&O: Vital Signs Temp 98.1 F 09/25/19 20:40 Pulse 80 09/26/19 17:29 Resp 18 09/26/19 07:52 BP 114/55 09/26/19 17:29 Pulse Ox 100 09/25/19 20:40 Intake & Output 09/26/19 09/26/19 09/27/19 06:59 18:59 06:59 Intake Total 120 Balance 120 Intake: Oral 120 Other: # Voids 2 # Bowel Movements 0 Active Medications: Current Medications Acetaminophen (Tylenol) 650 mg PO Q4H PRN PRN Reason: Pain (Mild 1-3) Stop: 11/18/19 01:05 Acetaminophen (Tylenol) 650 mg PO Q4H PRN PRN Reason: Temperature above 101 Stop: 11/18/19 03:13 Al Hydrox/Mg Hydrox/Simethicone (Maalox) 30 ml PO Q4HR PRN PRN Reason: GI DISTRESS Stop: 11/18/19 01:05 Atorvastatin Calcium (Lipitor) 20 mg PO HS [facility]; Protocol Stop: 11/18/19 20:59 Last Admin: 09/25/19 21:05 Dose: 20 mg Baclofen (Lioresal) 10 mg PO TID [facility] Stop: 11/18/19 08:59 Last Admin: 09/26/19 13:11 Dose: 10 mg Benazepril HCl (Lotensin) 20 mg PO BID [facility] Stop: 11/18/19 08:59 Last Admin: 09/26/19 17:29 Dose: 20 mg Buspirone HCl (Buspar) 10 mg PO TID [facility]; Protocol Stop: 11/21/19 08:59 Last Admin: 09/26/19 13:11 Dose: 10 mg Diclofenac Sodium (Voltaren) 25 mg PO DAILY [facility] Stop: 11/19/19 08:59 Last Admin: 09/26/19 08:37 Dose: 25 mg Docusate Sodium (Colace) 250 mg PO DAILY [facility] Stop: 11/18/19 08:59 Last Admin: 09/26/19 08:21 Dose: 250 mg Fluoxetine HCl (Prozac) 10 mg PO DAILY [facility]; Protocol Stop: 11/23/19 08:59 Last Admin: 09/26/19 08:37 Dose: 10 mg Furosemide (Lasix) 20 mg PO DAILY [facility] Stop: 11/18/19 08:59 Last Admin: 09/26/19 08:22 Dose: 20 mg Galantamine Hydrobromide (Razadyne) 4 mg PO BID [facility] Stop: 11/18/19 08:59 Last Admin: 09/26/19 17:28 Dose: 4 mg Hydrochlorothiazide (Hctz) 25 mg PO DAILY [facility] Stop: 11/19/19 08:59 Last Admin: 09/26/19 08:22 Dose: 25 mg Levetiracetam (Keppra) 500 mg PO BID [facility] Stop: 11/18/19 08:59 Last Admin: 09/26/19 17:30 Dose: 500 mg Magnesium Hydroxide (Milk Of Magnesia) 30 ml PO HS PRN PRN Reason: Constipation Multivitamins/Vitamin C (Theragran) 1 tab PO DAILY [facility] Stop: 11/18/19 08:59 Last Admin: 09/26/19 08:22 Dose: 1 tab Pantoprazole Sodium (Protonix) 40 mg PO DAILY [facility] Stop: 11/19/19 08:59 Last Admin: 09/26/19 08:22 Dose: 40 mg Potassium Chloride (Klor-Con) 10 meq PO DAILY [facility] Stop: 11/18/19 08:59 Last Admin: 09/26/19 08:21 Dose: 10 meq Quetiapine Fumarate 100 mg/ (Quetiapine Fumarate 25 mg) 125 mg PO BID [facility] Stop: 11/25/19 08:59 Last Admin: 09/26/19 17:29 Dose: 125 mg Spironolactone (Aldactone) 25 mg PO DAILY [facility] Stop: 11/19/19 08:59 Last Admin: 09/26/19 08:21 Dose: 25 mg Sumatriptan Succinate (Imitrex) 50 mg PO DAILY PRN PRN Reason: headache Stop: 11/19/19 06:12 General: demented HEENT: NC/AT, PERRLA, EOMI, anicteric sclerae, throat clear Neck: Supple, No JVD, No thyromegaly, +2 carotid pulse wo bruit, No LAD, + JVD Lungs: CTAB Cardiovascular: RRR, Normal S1, Normal S2, without murmur Abdomen: non-tender, non-distended Extremities: clear Neurological: no change Internal Medicine Assmt/Plan - Assessment Assessment: 1.HTN. 2.COPD. 3.SEIZURE DISORDER. 4.PSYCHOSIS - Plan Plan: CONTINUE ON CURRENT MEDICATION AND DIET Nutritional Asmnt/Malnutr-PDOC - Dietary Evaluation Malnutrition Findings (Please click <Entered> for more info): Nutritional Asmnt/Malnutrition Start: 09/25/19 15: 07 Text: Status: Complete Freq: Protocol: Document 09/25/19 15:07 [email or web address] (Rec: 09/25/19 15:09 [email or web address] [id number]) Nutritional Asmnt/Malnutrition Patient General Information Nutritional Screening Low Risk Diagnosis Psychosis Pertinent Medical Hx/Surgical Hx HTN, Seizure Disorder, Hyperlipidemia, DJD, Migraine headaches, Psychosis Subjective Information Pt is a 68-year-old female admitted on 09/19 d/t psychosis . Pt is eating an estimated 60 % of meals Per Meal/Nutrition Activity Record. Dietary is currently providing an estimated 2200 kcals and 80 gm Pro, per Pt PO intake this is providing an estimated 1320 kcals and 48gm Pro to meet 94% kcal and 86% Pro needs- adequate. Anthropometrics HT: 57 WT: 210 LB (95.45 kg) ABW: 154 LB (70 kg) BMI: 32.89 (Obese, class I) GI/ Skin Integrity GI: WNL, Soft, Non-tender BM: 09/21 x1 I/O: 1160/Not Noted Skin: WNL, Dryness Lino: 20 Diet Order: 2GM Na Estimated Energy Needs: ( Geriatric, ABW) 0331-0669 kcals (20-25 kcals/ kg) 56-70g Pro (0.8-1.0 g/kg) 5032-4196 ml (25-30 ml/kg) Current Diet Order/ Nutrition Support 2GM Na Pertinent Medications Maalox (PRN), Lipitor, Colace, Lasix, Hydrochlorothiazide, MOM (PRN), Theragran, Protonix , Klor-con, Aldactone Pertinent Labs Continue 2GM Na diet as tolerated d/t Hx HTN. Nutritional Hx/Data Height 1.7 m Height (Calculated Centimeters) 170.2 Current Weight (lbs) 95.254 kg Weight (Calculated Kilograms) 95.3 Weight (Calculated Grams) 75774.4 [place] Body Weight 135 LB(61.36 kg) % [place] Body Weight 156 Body Mass Index (BMI) 32.8 Weight Status Obese GI Symptoms Last BM 09/21 x1 Skin Integrity/Comment: Skin: WNL, Dryness Lino: 20 Current %PO Good (75-100%) Estimated Nutritional Goals BEE in Kcals: Adj wt of IBW Calories/Kcals/Kg 20-25 Kcals Calculated 6060-2196 Protein: Adj wt of IBW Protein g/k.8-1.0 Protein Calculated 56-70 Fluid: ml 9085-0123 ml (25-30 ml/kg) Nutritional Problem 1. Problem Problem Obesity Etiology r/t chronic energy overconsumption Signs/Symptoms: aeb BMI 32.89 (obese, class I) . Malnutrition Related to Morbid Obesity Malnutrition related to morbid obesity No Intervention/Recommendation Comments Continue 2GM Na diet as tolerated d/t Hx HTN. Expected Outcomes/Goals Expected Outcomes/Goals 1.PO intake to continue to meet >75% of estimated nutritional needs. 2.Monitor PO intake, wt, nutrition related labs, and skin integrity to trend WNL. 3.F/U as low risk in 7-10 days , 10/02-10/05.
[2019-09-26] MEDS: Atorvastatin Calcium 10 MG TAB PO SCH (20:43)
[2019-09-27] MEDS: Potassium Chloride 10 mEq ER Tab PO SCH (08:16)
[2019-09-27] MEDS: Pantoprazole 40 mg EC Tab PO SCH (08:17)
[2019-09-27] MEDS: Multivitamin Tab PO SCH (08:18)
--- NOTE | 2019-09-27 08:43 | Progress Notes ---
DATE: SUBJECTIVE: Chart was reviewed and the patient interviewed. Also discussed the patient's condition with the staff and reviewed records and labs. The patient seems to be calmer than before and less irritable and less agitated. The patient also is interacting more. The patient seems to be less suspicious and less paranoid. She also is less obsessive with her thoughts. She also is compliant with taking her medications with no side effects of medications. I spoke with the learning and development administrator of [facility] where the patient came from and discussed her return. Although they did not want to take her back, but supposedly they will interview her and hopefully they will accept her since the patient is showing a better behavior at this time and not as obsessed and not as agitated. At the same time, we will continue to monitor behavior and if the patient is accepted, will plan to discharge her today over there. JOB# [id number]
--- NOTE | 2019-09-27 15:43 | Discharge Summary ---
DATE OF DISCHARGE: 09/27/2019 AGE: 68. SEX: Female. PHYSICIAN: Dr. Camargo. FINAL DIAGNOSIS/PRIMARY DIAGNOSES: Schizoaffective disorder, bipolar type, severe, with psychotic features. MEDICAL DIAGNOSIS: Hypertension. REASON FOR HOSPITALIZATION: The patient was admitted to the hospital from [facility] after she was placed on hold by Dr. Naqvi because of agitation and threatening others. HOSPITAL COURSE: The patient continued to be agitated. The patient continued asking questions over and over and angry for being in the hospital and demanding to leave and threatening staff and myself in order to leave. Also, was demanding to talk to her primary care physician. The patient continued to take BuSpar that was increased and also in the beginning continued to take Risperdal that was not helping the patient much. Seroquel was added to the medications Gradually also, Risperdal was taken away. The patient continued to be demanding and agitated, but gradually her affect was brighter. The patient also was less irritable and less agitated. The patient was discharged from the hospital and was returned to [facility]. PHYSICAL EXAMINATION: The patient showed no major medical problems. Also, blood workup was monitored closely with no major medical problems. AFTER DISCHARGE PLANS: The patient discharged from the hospital with plans for outpatient treatment. EXPECTED OUTCOME AFTER DISCHARGE: Fair if the patient continues to take her medications and follow up with discharge plans. [facility]# [id number]
[2019-09-30 16:06] VITALS: BP 168/70
== END 2019-09-27 15:45 | DRG 885 ==
LOC: GERO 09-19 00:30
PROVIDERS: ADMIT Psychiatry & Neurology Psychiatry; ATTEND Psychiatry & Neurology Psychiatry
DX: F25.0 Schizoaffective disorder, bipolar type (principal); F29 Unspecified psychosis not due to a substance or known physiological condition; I10 Essential (primary) hypertension; M19.90 Unspecified osteoarthritis, unspecified site; E78.5 Hyperlipidemia, unspecified; G43.909 Migraine, unspecified, not intractable, without status migrainosus; G40.909 Epilepsy, unspecified, not intractable, without status epilepticus; J44.9 Chronic obstructive pulmonary disease, unspecified; G89.29 Other chronic pain; Z79.899 Other long term (current) drug therapy; Z88.8 Allergy status to other drugs, medicaments and biological substances
CPT/HCPCS: 71045-TC; 83036-90; 90899; G0410; J7051; Z7610